=== PATIENT | female | born 1970 | race Caucasian/White ===

== ENCOUNTER 2018-10-23 18:32 | Emergency (ER) | payer OTHER ==
[2018-10-23 20:23] VITALS: BP 144/79
--- NOTE | 2018-10-23 21:37 | UC ---
Shoulder Pain HPI - HPI Summary HPI Summary: RIGHT SHOULDER PAIN AFTER SLIPPING AND FALLING ON THE ICE EARLIER THIS EVENING. REFUSES TO MOVE IT. HAS SLING ON. - History of Current Complaint Chief Complaint: UCUpperExtremity Stated Complaint: ARM INJURY Time Seen by Provider: 10/23/18 21:17 Hx Obtained From: Patient Hx Last Menstrual Period: 3 wks ago Onset/Duration: Sudden Onset, Lasting Hours, Still Present Timing: Constant Severity Initially: Moderate Severity Currently: Moderate Location Of Pain: Is Discrete @ - RIGHT SHOULDER Pain Intensity: 2 Pain Scale Used: 0-10 Numeric Character: Sharp Aggravating Factor(s): Movement Alleviating Factor(s): Rest Associated Signs And Symptoms: Negative: Swelling, Redness, Numbness/Tingling Related History: Dominant Hand Right - Allergies/Home Medications Allergies/Adverse Reactions: Allergies Allergy/AdvReac Type Severity Reaction Status Date / Time morphine Allergy Rash Verified 10/23/18 20:24 Home Medications: Home Medications Levothyroxine TAB* [Synthroid 75 MCG TAB*] 1 tab PO DAILY 10/23/18 [History Confirmed 10/23/18] l-Norgest/E.estradiol-E.estrad [Camrese Lo Tablet] 1 tab PO DAILY 10/23/18 [ History Confirmed 10/23/18] PMH/Surg Hx/FS Hx/Imm Hx Endocrine History: Hypothyroidism - Surgical History Surgical History: Yes Surgery Procedure, Year, and Place: Right shoulder - Family History Known Family History: Positive: Non-Contributory - Social History Alcohol Use: Occasionally Substance Use Type: None Smoking Status (MU): Never Smoked Tobacco Review of Systems All Other Systems Reviewed And Are Negative: Yes Constitutional: Positive: Negative Skin: Positive: Negative Respiratory: Positive: Negative Cardiovascular: Positive: Negative Gastrointestinal: Positive: Negative Musculoskeletal: Positive: Arthralgia, Decreased ROM Physical Exam Triage Information Reviewed: Yes Appearance: Well-Appearing, Well-Nourished, Pain Distress - MILD Vital Signs: Initial Vital Signs Temp 98.8 F 10/23/18 20:18 Pulse 66 10/23/18 20:18 Resp 18 10/23/18 20:18 BP 144/79 10/23/18 20:18 Pulse Ox 98 10/23/18 20:18 Vital Signs Reviewed: Yes Eyes: Positive: Conjunctiva Clear ENT: Positive: Hearing grossly normal Neck: Positive: Supple Respiratory: Positive: No respiratory distress, No accessory muscle use Cardiovascular: Positive: Pulses Normal Abdomen Description: Positive: Soft Musculoskeletal: Positive: No Edema, ROM Limited @ - UNABLE TO MOVE RIGHT ARM AT SHOULDER ACTIVELY BUT HAS INTACT PASSIVE ROM, Other: - NO FOCAL TENDERNRESS RIGHT SHOULDER Neurological: Positive: Alert Psychological: Positive: Age Appropriate Behavior Skin: Negative: Rashes Diagnostics - Radiology RIGHT SHOULDER XRAY Radiology Interpretation Completed By: ED Physician Summary of Radiographic Findings: NO FRACTURE OR DISLOCATION Shoulder Course/Dx - Course Assessment/Plan: X-RAY TODAY UNREMARKABLE FOR FRACTURE OR DISLOCATION ON MY INITIAL INTERPRETATION. RADIOLOGY READ IS PENDING. PROVIDED PATIENT WITH A SHOULDER IMMOBILIZER AND ADVISED HER TO FOLLOW-UP WITH ORTHOPEDICS IF SHE IS NOT IMPROVING OVER THE NEXT WEEK OR SO. ALSO DISCUSSED THE POSSIBILITY OF REINJURY OF HER ROTATOR CUFF. - Differential Dx/Diagnosis Provider Diagnosis: Sprain of right shoulder Discharge - Sign-Out/Discharge Documenting (check all that apply): Patient Departure All imaging exams completed and their final reports reviewed: No - Discharge Plan Condition: Stable Disposition: HOME Patient Education Materials: Shoulder Sprain (ED) Referrals: Charlette Slaughter MD [Primary Care Provider] - If Needed Catalina Bazan MD [Medical Doctor] - If Needed Additional Instructions: X-RAY TODAY UNREMARKABLE FOR FRACTURE OR DISLOCATION ON MY INITIAL INTERPRETATION. WE WILL CALL YOU IF THE OFFICIAL RADIOLOGY READ DIFFERS. SHOULDER IMMOBILIZER WILL HELP WITH YOUR DISCOMFORT. OTC MEDICATIONS NEEDED. GO THROUGH SLOW RANGE OF MOTION EXERCISES YOU ARE ABLE TO PREVENT STIFFENING UP AND MAKING THE DISCOMFORT WORSE. CONSIDER THAT YOU MAY HAVE REINJURED YOUR ROTATOR CUFF. IF YOUR SYMPTOMS ARE NOT IMPROVING EXPECTED OVER THE NEXT 1-2 WEEKS FOLLOW-UP WITH ORTHOPEDICS. YOU MAY BENEFIT FROM MORE ADVANCED IMAGING AT THAT TIME. - Billing Disposition and Condition Condition: STABLE Disposition: Home
--- NOTE | 2018-10-24 15:26 | UC ---
- Progress Note Progress Note: OFFICIAL RADIOLOGY REPORT REVIEWED AND CONFIRMS NO FRACTURE OR DISLOCATION. NO CHANGE IN MGMT. Course/Dx - Diagnoses Provider Diagnoses: Sprain of right shoulder Discharge - Sign-Out/Discharge Documenting (check all that apply): Post-Discharge Follow Up All imaging exams completed and their final reports reviewed: Yes - Discharge Plan Condition: Stable Disposition: HOME Patient Education Materials: Shoulder Sprain (ED) Referrals: Charlette Slaughter MD [Primary Care Provider] - If Needed Catalina Bazan MD [Medical Doctor] - If Needed Additional Instructions: X-RAY TODAY UNREMARKABLE FOR FRACTURE OR DISLOCATION ON MY INITIAL INTERPRETATION. WE WILL CALL YOU IF THE OFFICIAL RADIOLOGY READ DIFFERS. SHOULDER IMMOBILIZER WILL HELP WITH YOUR DISCOMFORT. OTC MEDICATIONS NEEDED. GO THROUGH SLOW RANGE OF MOTION EXERCISES YOU ARE ABLE TO PREVENT STIFFENING UP AND MAKING THE DISCOMFORT WORSE. CONSIDER THAT YOU MAY HAVE REINJURED YOUR ROTATOR CUFF. IF YOUR SYMPTOMS ARE NOT IMPROVING EXPECTED OVER THE NEXT 1-2 WEEKS FOLLOW-UP WITH ORTHOPEDICS. YOU MAY BENEFIT FROM MORE ADVANCED IMAGING AT THAT TIME. - Billing Disposition and Condition Condition: STABLE Disposition: Home
== END 2018-10-23 21:56 | disposition home or self-care (01) ==
LOC: UCEAST 18:32
DX: S43.401A Unspecified sprain of right shoulder joint, initial encounter (principal); E03.9 Hypothyroidism, unspecified; Z88.5 Allergy status to narcotic agent; Z79.899 Other long term (current) drug therapy; W00.0XXA Fall on same level due to ice and snow, initial encounter; Y92.9 Unspecified place or not applicable
CPT/HCPCS: 99212; G0463